=== PATIENT | male | born 1940 ===

== ENCOUNTER 2022-05-09 11:41 | Inpatient (IN) | payer MEDICARE ==
[~2022-05-09] VITALS: Ht 180.3 cm; Wt 68.9 kg
--- NOTE | 2022-05-09 19:34 | NUR ---
RECEIVED PT FROM TRANSPORT AND PLACED PT IN ROOM AT SHIFT CHANGE TIME, REPORT GIVEN TO LUAN MORALEZ. PT RESTING A/O. ON 5L O2. BED IN LOW POSITION, CALL LITE IN REACH, CALLS APPROP
--- NOTE | 2022-05-09 20:07 | NUR ---
DIRECT ADMIT FROM [place] 81 YR OLD MALE ADMITTED TO FLOOR FROM [facility], OR, WITH REPORTED COPD EXACERBATION WITH POSSIBLE NSTEMI. DIFFICULT TO ARROUSE, DENIES ALLERGIES. ON 5L/MIN O2 PER FACE MASK. 100%, O2 DROPPED TO 4L/MIN. HOB ELEVATED. DENIES CHEST PAIN. CALL PLACED TO DR BECKFORD WHO CALLED BACK TO CONFIRM SHE WILL COME UP TO ASSESS/ADMIT PT FARTUN. CALL LIGHT IN REACH
[2022-05-09] MEDS ORDERED: DULOXETINE HCL60 M1 PO (21:21)
[2022-05-09] MEDS ORDERED: NEURONTIN300 MG PO (21:21)
[2022-05-09] MEDS ORDERED: OXYCODONE-ACET1 EAC3 PO (21:22)
[2022-05-09] MEDS ORDERED: VITAMIN C125 MG PO (21:22)
[2022-05-09] MEDS ORDERED: FUROSEMIDE40 MG PO (21:24)
[2022-05-09] MEDS ORDERED: NICODERM CQ TOP (21:24)
[2022-05-09] MEDS ORDERED: VITAMIN B1 50 MG PO (21:24)
[2022-05-09] MEDS ORDERED: FOLI1 PO (21:25)
[2022-05-09] MEDS ORDERED: WIXELA 250-501 EAC1 INH (21:25)
[2022-05-09] MEDS ORDERED: TAMSULOSIN HCL0.4 M1 PO (21:26)
[2022-05-09] MEDS ORDERED: SPIRIVA RESPIMAT4 G3 INH (21:26)
[2022-05-09] MEDS ORDERED: PANTOPRAZOLE SO40 M2 PO (21:27)
[2022-05-09] MEDS ORDERED: ROPINIROLE HC PO (21:27)
[2022-05-09] MEDS ORDERED: METOPROLOL TART25 MG PO (21:28)
[2022-05-09] MEDS ORDERED: ZESTRIL40 M1 PO (21:28)
[2022-05-09] MEDS ORDERED: KLOR-CON 1010 ME8 PO (21:28)
[2022-05-09] MEDS ORDERED: ALLOPURINOL100 M1 PO (21:29)
[2022-05-09] MEDS ORDERED: LEVOTHYROXINE112 M16 PO (21:29)
[2022-05-09] MEDS ORDERED: TROSPIUM CHLORI20 M1 PO (21:30)
[2022-05-09] MEDS ORDERED: Ventolin/Prove6.7 GM INH (21:30)
[2022-05-09] MEDS ORDERED: ATOR40TA PO (21:31)
[2022-05-10 04:50] LABS: BASOPHILS ABSOLUTE AUTO 0.04 K/mm3 (0.00-0.23); BASOPHILS PERCENT AUTO 1 % (0-2); EOSINOPHILS PERCENT AUTO 0 % (0-6); Hematocrit 37.1 % (37.0-53.0); IMMATURE GRAN ABSOLUTE AUTO 0.12 K/mm3 (0.00-0.10); IMMATURE GRAN PERCENT AUTO 2 % (0-1); LYMPHOCYTES ABSOLUTE AUTO 0.32 K/mm3 (0.84-5.20); LYMPHOCYTES PERCENT AUTO 5 % (21-46); MONOCYTES ABSOLUTE AUTO 0.11 K/mm3 (0.16-1.47); MONOCYTES PERCENT AUTO 2 % (4-13); Mean Corpuscular HGB 30.4 pg (26.0-34.0); Mean Corpuscular HGB Conc 32.3 g/dL (31.5-36.5); Mean Corpuscular Volume 94 fL (80-100); Mean Platelet Volume 10.2 fL (9.1-12.4); NEUTROPHILS ABSOLUTE AUTO 6.22 K/mm3 (1.96-9.15); NEUTROPHILS PERCENT AUTO 91 % (41-73); Platelet Count 268 K/mm3 (150-400); Red Blood Cell Count 3.95 M/mm3 (4.30-5.90); White Blood Cell Count 6.81 K/mm3 (4.00-11.30)
[2022-05-10 05:25] LABS: Bun/Creatinine Ratio 19.1 (12.0-20.0); Calcium, Blood 8.7 mg/dL (8.5-10.1); Creatinine, Blood 0.99 mg/dL (0.60-1.20); Potassium, Blood 3.9 mmol/L (3.5-5.5)
--- NOTE | 2022-05-10 05:57 | NUR ---
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 DX WAS COPD EXACERBATION AND POSSIBLE NSTEMI. ASSESSED BY MD, ORDERS OBTAINED. O2 PER NC WAS STARTED AT 5L/MIN, BUT WAS TRENDED DOWN TO 3L/MIN SATS WERE 100% DENIED CHEST PAIN. HAS BEEN RESTING WITH LOWD BREATHING NOISES AT INTERVALS. AWAKE AT THIS TIME. LAB TROP LEVEL CALLED TO FLOOR: 1042. MD TO BE NOTFIED. ASYMPTOMATIC. CALL LIGHT IN REACH.
--- NOTE | 2022-05-10 06:13 | NUR ---
DR WRAY NOTIFIED OF TROP LEVEL 1042. ORDERS FOR HEPARIN DRIP PLACED. CHARGE NURSE NOTIFIED. CALL LIGHT IN REACH
[2022-05-10 06:57] LABS: Anti-Xa UFH, PHA Monitoring <0.10 IU/mL; International Normalized Ratio 1.08; Prothrombin Time Results 11.3 Sec (9.7-11.5)
--- NOTE | 2022-05-10 10:13 | NUR ---
PT COUGHS FREQUENTLY WHILE EATING, THIS CAUSES HIM TO BECOME SHORT OF BREATH AND ANXIOIUS. HE WILL ASK FOR HIS INHALER REPEADELY DURING THIS. HIS SATS REMAIN 95% OR HIGHER T/O. ONCE PATIENT IS ABLE TO COUGH UP WHAT IS CATCHING IN HIS THROAT HIS BREATHING IMPROVES AND ANXIETY SUBSIDES. SPOKE WITH PATIENT ABOUT TRIALING MECHANICAL SOFT DIET AT THIS TIME TO HELP IMPROVE ABILITY TO SWALLOW WITHOUT COUGHING MUCH. PT IS RECEPTIVE AND AGREES. PT CALLED THIS RN INTO ROOM AT AROUND 1000, HE HAD PULLED HIS IV OUT ACCIDENTLY AND WAS CONCERNED ABOUT THE BLEEDING. HELD PRESSURE AND STOPPED THE HEPARIN INFUSION. NOTIFIED PHARMACY AND WILL ATTEMPT TO PLACE A NEW IV.
--- NOTE | 2022-05-10 16:41 | NUR ---
SHIFT SUMMARY PT HAS NOT BEEN COUGHING FREQUENTLY SINCE NPO PENDING SPEECH EVAL PER DR. LYNN. PT WILL OCCASIONALLY COUGH AND GET SHORT OF BREATH BUT CAN BE REDIRECTED. OCCASIONALLY CONFUSED UPON WAKING UP, BED ALARM PLACED ON FOR SAFETY. PT USING URINAL AT BEDSIDE, STANDS AND PIVOTS WELL. HEPARIN INFUSING PER EMAR. ECHO DONE TODAY.
--- NOTE | 2022-05-10 17:50 | NUR ---
PT NPO AT THIS TIME PENDING SPEECH EVAL R/T COUGHING WHILE EATING.
--- NOTE | 2022-05-10 19:43 | NUR ---
AWAKE. IN BED. HEPARIN DRIP INFUSING. CALL LIGHT IN REACH
--- NOTE | 2022-05-10 23:13 | NUR ---
MED TELE REPORTS INTERMITTENT CT PAUSESS ABOUT 2 SEC EACH. PT ASYMPTOMATIC. RESTING QUIETLY. WILL CALL MD FOR NOTIFICATION.
--- NOTE | 2022-05-10 23:31 | NUR ---
CALL PLACED TO , NOTIFIED OF CT PAUSES. EKG ORDERED. REMAINS ASYMPTOMATIC
--- NOTE | 2022-05-10 23:50 | NUR ---
EKG DONE, A FIB. NOTE HX AFIB WELL. NOIFIED, VSS. REMAINS ASYMPTOMATIC. NO NEW ORDERS, STATED PT IS PROCESS OF WORK UP RE NSTEMI. CALL LIGHT IN REACH. RESETING QUIETLY
--- NOTE | 2022-05-11 04:22 | NUR ---
CAR DRYER SUMMARY IV HEPARIN DOSE CHANGED TO 14 U/KG PER PHARMACY TITRATION. HAS BEEN AWAKE AT INTERVALS. DENIED PAIN WHEN ASKED. RESPS COARSE/DIMINISHED TO AUSCULTATION. MED TELE REPORTED INTERMITTENT CT PAUSES - SOME OVER 2 SECONDS. MD NOTIFIED, EKG ORDERED - A FIB CONFIRMED. MD NOTIFIED BUT SINCE PT ASYMPTOMATIC, MD DID NOT ADD ANY MORE ORDERS, STATED THAT HIS RECENT NSTEMI WAS STILL BEING ASSESSED AND WOULD CONTIUE TO MONITOR. PT CONTINUES TO DENY CHEST PAIN AND PAIN IN GENERAL. CALL LIGHT IN REACH.
[2022-05-11 05:42] LABS: PCO2 Arterial 63.6 mmHg (35-45); PO2 Arterial 113 mmHg (80-100); pH Blood Arterial 7.39 (7.35-7.45)
[2022-05-11 07:29] LABS: Hematocrit 36.9 % (37.0-53.0); Hemoglobin 11.6 g/dL (13.5-17.5); Mean Corpuscular HGB 29.7 pg (26.0-34.0); Mean Corpuscular HGB Conc 31.4 g/dL (31.5-36.5); Mean Corpuscular Volume 94 fL (80-100); Mean Platelet Volume 9.8 fL (9.1-12.4); Platelet Count 225 K/mm3 (150-400); RDW Coefficient Variation 17.3 % (11.7-14.2); Red Blood Cell Count 3.91 M/mm3 (4.30-5.90); White Blood Cell Count 13.85 K/mm3 (4.00-11.30)
[2022-05-11 07:50] LABS: Albumin, Blood 3.3 g/dL (3.4-5.0); Albumin/Globulin Ratio 0.9 (0.8-1.8); Bilirubin, Total 0.6 mg/dL (0.1-1.0); Bun/Creatinine Ratio 29.2 (12.0-20.0); Calcium, Blood 8.6 mg/dL (8.5-10.1); Creatinine, Blood 1.06 mg/dL (0.60-1.20); Globulin, Blood 3.5 g/dL (2.2-4.0); Magnesium, Blood 2.4 mg/dL (1.6-2.4); Phosphorus, Blood 3.7 mg/dL (2.5-4.9); Potassium, Blood 4.2 mmol/L (3.5-5.5); Total Protein, Blood 6.8 g/dL (6.4-8.2)
[2022-05-11 08:46] LABS: CHOL/HDL RATIO 2.9; Cholesterol 149 mg/dL (50-200); HDL Cholesterol 52 mg/dL (>39); LDL/HDL RATIO 1.5; Low Density Lipoprotein Chol 79 mg/dL (0-110); Triglycerides 89 mg/dL (30-160); Very Low Density Lipoprot Chol 17 mg/dL (6-32)
--- NOTE | 2022-05-11 15:35 | NUR ---
CARDIAC MED RECORDS SEVERAL CALLS TO PCP, CLINICS, & HOSPITALS IN [facility], [place] & [place]. 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
--- NOTE | 2022-05-11 16:54 | NUR ---
SHIFT SUMMARY HEPARIN DRIP HAS RAN T/O SHIFT. CARDIOLOGY CONSULT COMPLETED THIS AM. MUCH WORK DONE INTO ATTEMPTING TO GET RECORDS FROM [facility]; UNSUCCESSFUL. TROP LEVELS TRENDING DOWN. MINIMALLY PRODUCTIVE COUGH (PT SWALLOWS).
[2022-05-12 03:45] LABS: Hematocrit 34.5 % (37.0-53.0); Hemoglobin 10.9 g/dL (13.5-17.5); Mean Platelet Volume 10.5 fL (9.1-12.4); Platelet Count 223 K/mm3 (150-400)
--- NOTE | 2022-05-12 04:27 | NUR ---
SHIFT SUMMARY PATIENT IS ALERT AND ORIENTED BUT FORGETFUL THIS SHIFT. PATIENT HAS HAD NO ACUTE EVENTS THIS SHIFT. VITAL SIGNS REVIEWED. PATIENT HAS BEEN ON HEPARIN DRIP ALL SHIFT AND REQUIRED NO TITRATIONS THIS SHIFT. TROPONINS HAVE BEEN TRENDING LOWER. PATIENT HAS HAD NO COMPLAINTS OF PAIN, NAUSEA, SOB OR VOMITTING THIS SHIFT. BED IN LOCKED AND LOWEST POSITION. CALL LIGHT IN PLACE. WILL MONITOR UNTIL SHIFT CHANGE.
--- NOTE | 2022-05-12 07:53 | NUR ---
SIGNIFICANT OTHER/DEVELOPMENT LEAD DAMASO CAUSEY [phone]
[2022-05-12 09:20] LABS: Albumin, Blood 3.7 g/dL (3.4-5.0); Anion Gap 5 mmol/L (6-16); Blood Urea Nitrogen 43 mg/dL (8-24); Bun/Creatinine Ratio 33.6 (12.0-20.0); CO2, Blood 36 mmol/L (21-32); Calcium, Blood 8.5 mg/dL (8.5-10.1); Chloride, Blood 94 mmol/L (98-108); Creatinine, Blood 1.28 mg/dL (0.60-1.20); Glomerular Filtration Rate 57 (60-); Glucose, Blood 152 mg/dL (70-99); Phosphorus, Blood 2.9 mg/dL (2.5-4.9); Potassium, Blood 3.7 mmol/L (3.5-5.5); Sodium, Blood 135 mmol/L (136-145)
--- NOTE | 2022-05-12 11:10 | NUR ---
PT IS IN THE [facility] SYSTEM, A [facility] GLOBE TESTER (ALEJO) CALLED TO CHECK ON THE PT [phone]
--- NOTE | 2022-05-12 11:13 | NUR ---
ATTEMPTED TO CALL [facility] FOR MEDICAL RECORDS PER DR MARTINES REQUEST CALL TO [facility] [phone] AND ASKED TO BE TRANSFERRED, UNABLE TO GET THROUGH MULTIPLE TIMES, UPDATED DR MARTINES
--- NOTE | 2022-05-12 14:46 | NUR ---
PT TRANSFERED TO ROOM 348. FLY MORALEZ. GIVEN REPORT WHO ASSUMES CARE.
--- NOTE | 2022-05-12 15:46 | NUR ---
PT TX FROM ROOM 363 TO ROOM 348 ([id number]) WITH CLOSER OBSERVATION AND REMOTE CAMERA FOR FALL RISK AND TO PROTECT PT FROM PULLING IV OUT. OERIENTED TO ROOM. PT IS CONFUSED, BUT DIRECTABLE AND CALM AT THE MOMENT. NOT TRYING TO LEAVE THE HOSPITAL LIKE WAS REPORTED BEFORE. HEPARIN GTT RUNNING. RESP E/U. OXYGEN AT 3L/NC. LUNGS CLEAR WITH FINE CRACKLES IN THE BASES. DENIES CHEST PAIN. REINFORCED THE CALL LIGHT AND SET BED ALARM.
--- NOTE | 2022-05-12 17:27 | NUR ---
SUMMARY- PT A/O TO SELF, FORGETFUL TO NAME OF TOWN. KNOWS THE PRESIDENT. MILD TREMOR FELT UPON PALP OF HANDS. PT DENIES VISUAL OR AUD HALLUCINATION. PT DENIES CHEST PAIN. BP CH[place]O ELEVATED. REMAINS ON HEPARIN GTT. HAS STAYED IN BED AND BEEN CALM AND COOPERATIVE, NO ATTEMPTS TO GET OOB. TOLERATING FOOD AND FLUID. USED THE URINAL. WILL REPORT TO OSWALD MORALEZ.
--- NOTE | 2022-05-13 04:45 | NUR ---
SHIFT SUMMARY PT CONTINUES WITH CWA'S, RESULTS HAVE BEEN LOW NUMBERS FOR THIS RN. PT HAS NO COMPLAINTS AT THIS TIME. PT BREATHING WITH A CROUP-LIKE SOUND. PT REFUSED OFFERS FOR BREATHING TX'S MUCH OF THE NIGHT, BUT FINALLY AGREED TO HAVE ONE. PT SLEEPING OFF AND ON THROUGHOUT THE NIGHT. PT PLEASANT AND ABLE TO FOLLOW DIRECTION. PT IS SLOW TO RESPOND AND A BIT CONFUSED. CALL LIGHT IS WITHIN HIS REACH, ALTHOUGH HE DOES NOT USE IT. BED ALARM IS ON.
[2022-05-13 05:27] LABS: Hematocrit 32.3 % (37.0-53.0); Hemoglobin 10.3 g/dL (13.5-17.5); Mean Corpuscular HGB 29.9 pg (26.0-34.0); Mean Corpuscular HGB Conc 31.9 g/dL (31.5-36.5); Mean Corpuscular Volume 94 fL (80-100); Platelet Count 184 K/mm3 (150-400); RDW Standard Deviation 57.3 fL (35.1-46.3); Red Blood Cell Count 3.44 M/mm3 (4.30-5.90); White Blood Cell Count 9.42 K/mm3 (4.00-11.30)
[2022-05-13 05:56] LABS: Anion Gap 4 mmol/L (6-16); Blood Urea Nitrogen 42 mg/dL (8-24); Bun/Creatinine Ratio 35.6 (12.0-20.0); CO2, Blood 36 mmol/L (21-32); Calcium, Blood 7.7 mg/dL (8.5-10.1); Chloride, Blood 100 mmol/L (98-108); Creatinine, Blood 1.18 mg/dL (0.60-1.20); Glomerular Filtration Rate 63 (60-); Glucose, Blood 103 mg/dL (70-99); Phosphorus, Blood 3.1 mg/dL (2.5-4.9); Potassium, Blood 3.8 mmol/L (3.5-5.5); Sodium, Blood 140 mmol/L (136-145)
--- NOTE | 2022-05-13 18:03 | NUR ---
SHIFT SUMMARY- PT IS ALERT, SOME CONFUSION. HE WILL BE NPO AFTER MIDNIGHT FOR ANGIO TOMORROW. HE SLEPT MOST OF THIS SHIFT. HE WAS UP FOR MEALS. HR WAS LOW EARLY THIS MORNING BUT HAS BEEN STABLE THE REST OF THIS SHIFT. HIS BED IS IN THE LOW POSITION AND CALL LIGHT IS WITHIN REACH.
--- NOTE | 2022-05-14 03:36 | NUR ---
SHRIMP PEELER SUMMARY WAS SLEEPING AT SHIFT COMMENCE. O2 PER NC. AWAKENED FOR HS MEDS, HOB ELEVATED FOR COMFORT. CIWAS VERY LOW - SEE DOC FLOW SHEETS. SOME CONGESTED RESPS TO AUSCULTATION. MED TELE A FIB. UP WITH ASSIST TO VOID IN URINAL. NPO FOR PROCEDURE LATER TODAY (ANGIOGRAM). COVID TEST SENT TO LAB FOR PROCESSING. CALL LIGHT IN REACH.
[2022-05-14 06:11] LABS: Albumin, Blood 3.6 g/dL (3.4-5.0); Anion Gap 2 mmol/L (6-16); Blood Urea Nitrogen 40 mg/dL (8-24); Bun/Creatinine Ratio 30.8 (12.0-20.0); CO2, Blood 40 mmol/L (21-32); Calcium, Blood 8.2 mg/dL (8.5-10.1); Chloride, Blood 100 mmol/L (98-108); Glomerular Filtration Rate 56 (60-); Glucose, Blood 98 mg/dL (70-99); Phosphorus, Blood 3.1 mg/dL (2.5-4.9); Sodium, Blood 142 mmol/L (136-145)
[2022-05-14 11:01] LABS: PCO2 Arterial 89 mmHg (35-45); PO2 Arterial 78.1 mmHg (80-100); pH Blood Arterial 7.26 (7.35-7.45)
--- NOTE | 2022-05-14 12:50 | NUR ---
THIS MORNING JUST AFTER SHIFT CHANGE PT REPORTED THAT HE WAS FEELING SHORT OF BREATH. CALLED RT. LUNG SOUNDS WERE COURSE AND TIGHT. PT DESATED INTO THE LOW 80'S HIGH 70'S. BREATHING TREATMENT WAS ADMINISTERED. SATURATIONS INCREASED TO MID-HIGH 90'S. PT REPORTED FEELING BETTER. HE ATE BREAKFAST, TOOK HIS MORNING MEDICATIONS, WITH NO COMPLAINTS. REPORTED THAT HE HAS HAD DIFFICULTY BREATHING LIKE THAT IN THE PAST. HE APPEARS IN NO DISTRESS AT THAT TIME AND REPORTS NO MORE DISCOMFORT. HE TOOK A NAP. UPON WAKING DR. LYNN ROUNDED ON THE PT. HE HAD SOME INCREASING DIFFICULTY BREATHING DURING HER VISIT. FLUTTER AND INCENTIVE SPIROMETER WAS GIVEN TO THE PT. RT CAME IN JUST AFTER DR. LYNN LEFT, PT REPORTED THAT HE WAS HAVING DIFFICULTY BREATHING AGAIN AND BREATHING TREATMENT WAS STARTED. PT SATS WERE IN THE 90'S. PT BEGAIN TO HAVE INCREASED RESP AND O2 SATS TRENDED DOWN. RT PLACED PT ON BIPAP. O2 SATS DROPED TO 68. O2 SATS INCREASED WITH BIPAP. XRAYS OF THE CHEST WERE TAKEN. PT WAS TRANSFERED TO PCU.
--- NOTE | 2022-05-14 12:57 | NUR ---
ASSUMED CARE OF PT AT 1240. RECIEVED REPORT FROM KIRT CUTLER. PT ARRIVED IN HOSPITAL BED VIA NC. RT AT BEDSIDE FOR BIPAP PLACEMENT AND SETTINGS. VS; BP 121/60 (75), HR 73, RR 22, O2 97% ON BIPAP. PT EYES ARE CLOSED BUT OPENS EYES TO VERABL STIMULI. PT IN BED SITTING UP. CALL LIGHT IN REACH AND BED IN LOWEST POSITION.
[2022-05-14 14:51] LABS: Influenza A, PCR NEGATIVE (NEGATIVE); Influenza B, PCR NEGATIVE (NEGATIVE); Resp Syncytial Virus, PCR NEGATIVE (NEGATIVE); SARS-Cov-2 (COVID-19) PCR, MMC NEGATIVE (NEGATIVE)
[2022-05-14 15:07] LABS: PCO2 Arterial 66.2 mmHg (35-45); PO2 Arterial 68.5 mmHg (80-100); pH Blood Arterial 7.38 (7.35-7.45)
--- NOTE | 2022-05-14 18:14 | NUR ---
SHIFT SUMMARY PT EYES CLOSED, NOT RESPONDING TO VERBAL STIMULI. BIPAP IN PLACE, SETTINGS 18/10 AND FI02 25%. VS; SBP 120'S - 130'S, HR 70'S, 02 91 - 98% ON BIPAP. PT HAD A FEW EPISODES OF BRADYCARDIA W/HR IN 50'S. ABOUT 1700, PT USED CALL LIGHT TO ASK FOR COFFEE AND TO EAT. PT ALERT, CONFUSED ON THE TIME OF DAY. PT THOUGHT IT WAS 0630 AM. WAS ABLE TO BE REORIENTED. BIPAP REMOVED AND NC PLACED TO ALLOW PT TO EAT DINNER. O2 SATS MAINTAINED. PT INTERACTIVE AND ANSWERING QUESTIONS. PT TO BE NPO AT MIDNIGHT FOR ANTICIPATED ANGIO IN AM. CALL LIGHT IN REACH AND BED IN LOWEST POSITION.
--- NOTE | 2022-05-14 19:13 | NUR ---
Pt short of breath/dyspneic with effort of attempting to stand and void, even while on the bipap. Back in bed and condom cath placed.
[2022-05-15 04:28] LABS: PCO2 Arterial 80.7 mmHg (35-45); PO2 Arterial 133 mmHg (80-100); pH Blood Arterial 7.29 (7.35-7.45)
[2022-05-15 04:33] LABS: Hematocrit 35.3 % (37.0-53.0); Hemoglobin 10.9 g/dL (13.5-17.5); Mean Corpuscular HGB 30.1 pg (26.0-34.0); Mean Corpuscular HGB Conc 30.9 g/dL (31.5-36.5); Mean Corpuscular Volume 98 fL (80-100); Mean Platelet Volume 10.7 fL (9.1-12.4); Platelet Count 195 K/mm3 (150-400); RDW Standard Deviation 61.7 fL (35.1-46.3); Red Blood Cell Count 3.62 M/mm3 (4.30-5.90); White Blood Cell Count 10.26 K/mm3 (4.00-11.30)
[2022-05-15 04:58] LABS: Albumin, Blood 3.3 g/dL (3.4-5.0); Anion Gap 3 mmol/L (6-16); Blood Urea Nitrogen 44 mg/dL (8-24); Bun/Creatinine Ratio 30.6 (12.0-20.0); CO2, Blood 39 mmol/L (21-32); Calcium, Blood 8.6 mg/dL (8.5-10.1); Chloride, Blood 101 mmol/L (98-108); Creatinine, Blood 1.44 mg/dL (0.60-1.20); Glomerular Filtration Rate 49 (60-); Glucose, Blood 127 mg/dL (70-99); Phosphorus, Blood 3.7 mg/dL (2.5-4.9); Potassium, Blood 4.5 mmol/L (3.5-5.5); Sodium, Blood 143 mmol/L (136-145)
--- NOTE | 2022-05-15 05:54 | NUR ---
SHIFT SUMMARY PT ALERT AND ORIENTED X4. FORGETFUL AT TIMES. AFEBRILE. BP STABLE. HR AFIB 60-70'S. ON BIPAP 18/10 30% FIO2, SATS OVER 95%. REQUESTED MULTIPLE BIPAP BREAKS THIS EVENING, SWITCHING TO 3L NC SATS OVER 92% DURING THESE BREAKS. CONDOM CATH IN PLACE DRAINING TO GRAVITY. 0428 ABG WORSENED FROM 1500 ABG YESTERDAY. PH DOWN FROM 7.38 TO 7.29 AND CO2 UP FROM 66.2 TO 80.7. PT PLACED ON BIPAP SINCE DRAW AND ENCOURAGED TO KEEP IT ON. PT NPO SINCE MIDNIGHT FOR POTENTIAL ANGIO. IN BED SLEEPING WITH CALL ALARM AT SIDE, WILL CONTINUE TO MONITOR UNTIL REPORT GIVEN TO ONCOMING RN
--- NOTE | 2022-05-15 07:30 | NUR ---
Pt is awake, conversant, but unable to complete sentences without pausing for breath. RR 24/minute, no distress. On 2.5 l/min n.c. delivery. Lungs sound tight, crackles, wheezes, and little air movement. RT here, pt receiving breathing tx at this time/. Flutter valve given. Pt is coughing occasionally, very scant clear sputum expectorated; he states that he is not coughing up anything, but he suctions scant amounts from his mouth after coughing. Dr. Fields here to talk with the pt.
--- NOTE | 2022-05-15 13:01 | NUR ---
Received call from adobe layer helper Nicole reporting Pt may benefit from discussion regarding code status. Spoke with Primary RNs Maryanne and Christine. Discussed case and concerns. Pt resting in bed and is A&OX4. Pt appears moderately dyspneic as evidenced by work of breathing and ability to speak in 1 to 2 word senctences only. Pt reports living at home alone. Pt reports having 1 cat and 1 dog. Pt states having a daughter and a son, both living in [place]. Pt reports having a cargiver that comes and assist with his needs. Engaged in therapeutic discussion regarding code status. Educated on life sustaining treatments including risk factors and implications of CPR. Pt V/U and states his wishes are DNR. Pt also request assistance with completing POLST. Assisted Pt with completing POLST. Spoke with Dr Fountain and discussed case. Placed DNR order in [facility] per V/O from Dr Fountain. Palliative Care will remain available.
--- NOTE | 2022-05-15 18:13 | NUR ---
SHIFT SUMMARY PT A&O, ON 2.5 L O2 WITH O2 SATS 96 - 98%. PT DOES NOT WANT TO WEAR BIPAP; EDUCATION PROVIDED. BIPAP OFFERED PERIODICALLY, PT AGREED TO WEAR DURING LATE MORNING NAP. PT BECAME MILDLY FATIGUE DURING LATE MORNING/AFTERNOON, O2 INCREASED TO 3 L UNTIL FEELING BETTER THEN BACK DOWN TO 2.5 L NC. LUNG SOUNDS ARE TIGHT AND WHEEZING, PT SOUNDS CONGESTED AND MOIST. COUGHING UP MODERATE AMOUNTS OF CLEAR, THICK SPUTUM. PT IS ABLE TO SUCTION INDEPENDENTLY AND IS USING FLUTTER VALVE. PT DENIES SOB PT STATES HE IS TIRED AND FEELS CONGESTED. THIS AM TACHYPNEA AND SUBSTERNAL RETRACTIONS NOTED, BUT IMPROVED THROUGHOUT THE DAY. VS; SBP 150'S , HR 70 - 80'S. PT EATING AND INTERACTING WITH STAFF, RESPONDING APPROPRIATELY. PT DID NOT HAVE ANGIO COMPLETED TODAY DUE TO WORSENING KIDNEY FUNCTION. PT EXPRESSED FRUSTRATION BUT EDUCATION PROVIDED BY [employer] DEHYDRATOR OPERATOR AND PLAN TO BE DETERMINED. PT CURRENTLY BACK ON BIPAP DUE TO INCREASED SOB AND PT REPORTING "FEELING LIKE IT WAS HARDER TO BREATH", PT WAS SITTING UP ON SIDE OF BED. CALL LIGHT IN REACH AND BED IN LOW POSIION.
--- NOTE | 2022-05-16 02:04 | NUR ---
EVENT NOTE RN ENTERS ROOM AT 0050. PT SATS WELL ON 3L NC OVER 93% BUT LABORED RESPIRATIONS AND RR >30. COMPLAINS OF NOT BEING ABLE TO BREATHE. RT NOTIFIED. PT PUT ON BIPAP BUT NOT TOLERATING. DR ANTONY CALLED AND SEROQUEL ORDERED. PT ENCOURAGED TO KEEP MASK ON LONG POSSIBLE
[2022-05-16 03:56] LABS: BASOPHILS ABSOLUTE AUTO 0.07 K/mm3 (0.00-0.23); BASOPHILS PERCENT AUTO 0 % (0-2); EOSINOPHILS PERCENT AUTO 0 % (0-6); Hematocrit 34.6 % (37.0-53.0); Hemoglobin 10.7 g/dL (13.5-17.5); IMMATURE GRAN PERCENT AUTO 2 % (0-1); LYMPHOCYTES ABSOLUTE AUTO 0.14 K/mm3 (0.84-5.20); LYMPHOCYTES PERCENT AUTO 1 % (21-46); MONOCYTES ABSOLUTE AUTO 1.64 K/mm3 (0.16-1.47); MONOCYTES PERCENT AUTO 9 % (4-13); Mean Corpuscular HGB 30.3 pg (26.0-34.0); Mean Corpuscular HGB Conc 30.9 g/dL (31.5-36.5); Mean Corpuscular Volume 98 fL (80-100); Mean Platelet Volume 10.7 fL (9.1-12.4); NEUTROPHILS ABSOLUTE AUTO 15.68 K/mm3 (1.96-9.15); NEUTROPHILS PERCENT AUTO 88 % (41-73); Platelet Count 217 K/mm3 (150-400); RDW Coefficient Variation 17.2 % (11.7-14.2); Red Blood Cell Count 3.53 M/mm3 (4.30-5.90); White Blood Cell Count 17.93 K/mm3 (4.00-11.30)
[2022-05-16 04:15] LABS: Bun/Creatinine Ratio 36.1 (12.0-20.0); Calcium, Blood 8.5 mg/dL (8.5-10.1); Creatinine, Blood 1.22 mg/dL (0.60-1.20)
--- NOTE | 2022-05-16 06:53 | NUR ---
SHIFT SUMMARY PT INITIALLY ALERT AND ORIENTED TO START SHIFT. ON 3L NC, PLEASANT, W/ RR IN LOW 20'S BP STABLE. HR REMAINS AFIB 50-80'S. WORK OF BREATHING AND RR INCREASED ON NC THROUGHOUT NIGHT. PT INITIALLY REFUSING BIPAP. SEE EVENT NOTE. PT MENTATION CHANGED, BECOMING INCREASINGLY AGGRESIVE, ANXIOUS AND DYSPNIEC. PT TOLERATED PUTTING BIPAP ON SINCE SEROQUEL ADMINISTRATION. PT RIPPED OF BIPAP ONCE SINCE MEDICATION GIVEN. RR IN 40'S WITH BIPAP ON AND DESATS INTO 60'S. CURRENTLY ON BIPAP SLEEPING COMFORTABLY WITH RR AT 20. WILL CONTINUE TO MONITOR UNTIL REPORT GIVEN TO ONCOMING NR
[2022-05-16 12:18] LABS: SARS-Cov-2 (COVID-19) PCR, MMC NEGATIVE (NEGATIVE)
--- NOTE | 2022-05-16 17:37 | NUR ---
SHIFT SUMMARY PT HAS BEEN TOO WEAK TO GET OUT OF BED. PT HAS HAD SEVERAL EPISODES OF CONFUSION WHERE THIS RN HAS ATTEMPTED TO REORIENT. AT ONE ENCOUNTER THE PT WOULD REPEAT "WHAT MODE IS IT" WITHOUT PROVIDING ANY CONTEXT OR ANSWERING ANY FOLLOW-UP QUESTIONS. PT HAS SLEPT IN INTERVALS OF 30 MINUTES TO ONE HOUR. AT APPROXIMATELY 1200 THE PT KEPT SHOUTING "HELP ME" WHILE TRYING TO REMOVE THEIR BIPAP MASK. THIS RN WAS UNABLE TO CALM PT AND THEY WERE TRANSITIONED TO NASAL CANNULA AT 3L. PT HAS HAD VERY LITTLE VERBAL INTERACTION AND DOES NOT ALWAYS RESPOND TO VERBAL STIMULI. PT WAS PLACED ON A BED [place] FOR A BOWEL MOVEMENT THIS EVENING AFTER ATTEMPTING TO GET OUT OF BED UNASSISTED AND BEING UNABLE TO GET SELF TO SITTING FROM LYING UNAIDED.
--- NOTE | 2022-05-16 18:44 | NUR ---
Pt polst on chart will need physician signature. pt fatigued desats easily revewed medications for burden of ventilation. AM labs pening to review his prognosis. kps score is 40%.
--- NOTE | 2022-05-16 20:31 | NUR ---
HS MEDICATIONS HELD HS MEDICATIONS HELD DUE TO ASPIRATION RISK. PER DAYSHIFT RN REPORT PT HAD BEEN SWALLOWING PILLS WHOLE WITH WATER WITHOUT DIFFICULTY DURING THE DAY. THIS EVENING PT TOOK ONE SMALL PILL AND SIP OF WATER AND BEGIN COUGHING QUITE A BIT AND APPEARED TO HAVE SOME PROBLEMS SWALLOWING. PT REPORTS THAT HE WAS ABLE TO GET THE PILL DOWN. I DID NOT FEEL COMFORTABLE GIVING PT ANYMORE OF HIS HS MEDICATIONS. RN [facility] NOTIFIED. DR. ANTONY CALLED AND NOTIFIED, REQUESTED SPEECH EVAL. DR. ANTONY TO REVIEW PT CHART AND ORDER IF NECESSARY.
--- NOTE | 2022-05-17 03:50 | NUR ---
SHIFT SUMMARY PT CONTINUES TO HAVE CONFUSION, HE WAS A/O TO SELF AND YEAR, AND PRESIDENT. BUT DID NOT KNOW WHERE HE WAS, AND IS CONFUSED TO SITAUATION AND EVENT. PT KEPT REMOVING BIPAP T/O THE NIGHT, BIPAP HAD TO BE PLACED SEVERAL TIMES BY MYSELF AND OTHER STAFF T/O THE NIGHT. PT MAINTAINS SATS ABOVE 95% ON 2L O2 WELL THE BIPAP AT 40% FIO2. LUNGS ARE MOIST, PT WITH PRODUCTIVE COUGH WITH THICK BROWN SPUTUM. VITALS ARE STABLE. CONDOM CATH IN PLACE PATENT AND DRAINING WITH ADEQUATE OUTPUT THIS SHIFT. PT BEGINS COUGHING HEAVILY WHEN TAKING IN SMALL SIP OF WATER, AND ONE SMALL PILL AT THE START OF THE SHIFT. DR. ANTONY NOTIFIED AND SPEECH EVAL ORDERED. PT HAS NOT TAKEN ANYTHING ELSE BY MOUTH THIS SHIFT PENDING SPEECH EVAL. ABG DONE THIS AM. PT RESTING AT THIS TIME. BED IN LOWEST POSITION, CALL LIGHT WITHIN REACH.
[2022-05-17 03:55] LABS: BASOPHILS ABSOLUTE AUTO 0.08 K/mm3 (0.00-0.23); BASOPHILS PERCENT AUTO 1 % (0-2); EOSINOPHILS ABSOLUTE AUTO 0.06 K/mm3 (0.00-0.68); EOSINOPHILS PERCENT AUTO 0 % (0-6); Hematocrit 34.1 % (37.0-53.0); Hemoglobin 10.8 g/dL (13.5-17.5); IMMATURE GRAN ABSOLUTE AUTO 0.35 K/mm3 (0.00-0.10); IMMATURE GRAN PERCENT AUTO 2 % (0-1); LYMPHOCYTES ABSOLUTE AUTO 0.57 K/mm3 (0.84-5.20); LYMPHOCYTES PERCENT AUTO 4 % (21-46); MONOCYTES ABSOLUTE AUTO 2.51 K/mm3 (0.16-1.47); MONOCYTES PERCENT AUTO 16 % (4-13); Mean Corpuscular HGB 30.2 pg (26.0-34.0); Mean Corpuscular HGB Conc 31.7 g/dL (31.5-36.5); Mean Corpuscular Volume 95 fL (80-100); Mean Platelet Volume 10.5 fL (9.1-12.4); NEUTROPHILS ABSOLUTE AUTO 11.85 K/mm3 (1.96-9.15); NEUTROPHILS PERCENT AUTO 77 % (41-73); Platelet Count 200 K/mm3 (150-400); RDW Coefficient Variation 17.3 % (11.7-14.2); RDW Standard Deviation 60.5 fL (35.1-46.3); Red Blood Cell Count 3.58 M/mm3 (4.30-5.90); White Blood Cell Count 15.42 K/mm3 (4.00-11.30)
[2022-05-17 04:34] LABS: Bun/Creatinine Ratio 42.1 (12.0-20.0); Calcium, Blood 8.4 mg/dL (8.5-10.1); Potassium, Blood 4.3 mmol/L (3.5-5.5)
[2022-05-17 04:55] LABS: PCO2 Arterial 68.6 mmHg (35-45)
[2022-05-17 04:56] LABS: PO2 Arterial 96.4 mmHg (80-100)
--- NOTE | 2022-05-17 08:22 | NUR ---
NOC SHIFT PLACED ORDER FOR SPEECH THERAPY CONSULT PT ASPIRATED ON EVENING PILLS SHE ATTEMPTED TO ADMINISTER, THE EVENING AIDE ALSO ATTEMPTED TO GIVE PT A SIP WAS WATER WHICH PT ALSO WAS REPORTED TO HAVE ASPIRATED ON WELL LAST NOC. PT NPO FOR SPEECH THERAPY ZHANNA
--- NOTE | 2022-05-17 11:52 | NUR ---
PT CONTINUES TO PULL AT MASK, PT CONSTANTLY REPOSITIONING AND ADJUSTING MASK STRAPS ON HIS OWN FOR COMFORT WHICH CAUSES AIRLEAKS. RT IS MADE AWARE THAT PT IS OFTEN ADJUSTING MASK ON HIS OWN WHICH HAS BEEN WITNESSED. PT'S MENTATION WAXES AND WANES, HE IS QUITE ANXIOUS AND BECOMES EASILY AGITATED. PT USES CALL LIGHT OCCASSIONALLY, OTHER TIMES SHOUTING OUT DOOR, REQUIRES FREQUENT ORAL SUCTIONING. ORAL CARE PERFORMED Q4 HOURS, PT TOLERATES ORAL CARE WELL. PT'S FAMILY WAS UPDATED BY DR CHANG TODAY
--- NOTE | 2022-05-17 15:26 | NUR ---
PT WAS BEING CONTINUOUSLY OBSERVED ON CAMERA, HE WAS NOTED TO REMOVE THE CORNER OF HIS MASK AND WITNESSED SPITTING ON SELF THEN PRESSING CALL LIGHT. THIS RN AND SOAP MIXER TO ROOM PT HAS NOT REPLACED MASK APPROPRIATELY, PT IS EDUCATED TO CALL STAFF PRIOR TO REMOVING AND MASK TO SPITTING ON SELF PT AKNOWLEDGES EDUCATTION BUT APPEARS ANGRY ABOUT THE EDCUATION PROVIDED. PT'S GOWN IS CHANGED. PT NOW REPORTS THAT HE IS HAVING "SEVERE PAIN" X3O MINUTES ALSO BECOMES ANGRY WHEN ASKED WHERE THE PAIN IS LOCATED PT DOES EVENTUALLY REPORT PAIN TO BE IN HIS LOWER BACK, THEN GOES ON TO STATE THAT HE IS GOING TO REQUIRE "IV PAIN MEDICINE OR I WANT TO , IF I DON'T GET IT I'M OUT OF HERE", PT REPOSITIONED WHICH HE STS RELIEVED THE SUDDEN ONSET OF BACK PAIN. PT THEN BEGINS SCREAMING "I CAN NOT BREATHE, I AM GOING TO " VSS, SPO2 95%, EMAR IS REVIEWED DECISION WAS MADE TO ADMINISTER ATIVAN IVP, DOSE WAS STARTED WITH 0.5MG PT HAS NOT RECEIEVED ATIVAN THIS ADMISSION, WILL CONSIDER ADMINISTERING THE FULL 1MG DOSE OF THE SLIDING 0.5-1MG DOSE FOR ANXIETY AND AIR HUNGER
--- NOTE | 2022-05-17 18:02 | NUR ---
LUNG SOUNDS NOTED TO BE MORE WET AND COARSE, DR GRACE CALLED, TELEPHONE ORDER OBTAINED TO CHANGE 125ML/HR NS INFUSION TO TKO AND REPEAT CHEST XRAY IN THE AM. PT REMAINS CONFUSED, AND AGITATED, ATIVAN 0.5MG HAS LITTLE AFFECT ON AGITATION OR ANXIETY. PT REFQUENTLY REMOVING THE STRAPS FROM BIPAP MACHINE. PT WAS UNABLE TO TOLERATE NASAL CANNULA FOR LONG THIS AM WHEN PLACED ON NASAL CANNULA TO SPEAK WITH DR GRACE. HTN NOTED T/OTHE SHIFT. PT REMAINS NPO, PENDING SPEECH THERAPY EVAL IN THE AM, PT WITH VERY MINIMAL GAG REFLEX NOTED UPON SUCTIONING, PT WITH FREQUENT SUCTIONING AND ORAL CARE T/O THIS SHIFT WHICH HE TOLERATES WELL BUT DOES GET AGITATED WITH. THE PAIN THAT PATIENT REPORTED TO HIS BACK A FEW HOURS AGO REMAINS RESOLVED AFTER REPOSITIONING AND HAS NOT RETURNED.
[2022-05-18 04:43] LABS: Base Excess Venous 14.6 mmol/L; PCO2 Venous 67.6 mmHg (38-42); pH Blood Venous 7.38 (7.34-7.37)
--- NOTE | 2022-05-18 05:34 | NUR ---
SHIFT SUMMARY PT RESPONDS TO PRESSURE STIMULI WITH MOANS. SpO2> 92% ON BIPAP 14/6 50%FiO2, PT REQUIRING 1mg IV ATIVAN PRN Q2hr PER EMAR IN ORDER TO KEEP BIPAP MASK ON. PT TOLERATED 3L NC FOR 30 MINUTES BEFORE TAKING IT OFF AND DESATURATING INTO 70's. PT REQUIRED NON-REBREATHER, NT SUCTION BY RT, AND BEING PLACED BACK ON BIPAP TO RECOVER TO 90's. BP ELEVATED, MANAGING PER EMAR, BP IMPROVED WITH SBP 140-150's POST NT SUCTION. AFIB WITH PVC's 70-110's. PT REMAINED BEDREST THIS SHIFT D/T OXYGEN DEMAND AND MENTAION. WILL REPORT TO DAY SHIFT RN.
[2022-05-18 06:50] LABS: Calcium, Blood 8.6 mg/dL (8.5-10.1); Creatinine, Blood 0.83 mg/dL (0.60-1.20); Potassium, Blood 4.2 mmol/L (3.5-5.5)
--- NOTE | 2022-05-18 17:13 | NUR ---
SHIFT SUMMARY PT REMAINS LETHARGIC AND ONLY REPONDS TO PAIN WITH MOANING. PT DOES START CALLING OUT WITH REPOSITIONING. PT HAS BEEN BIPAP DEPENDENT ALL SHIFT. PT TRIALED ON 6L NC AND DESATURATED TO LOW 80'S AFTER 15 MINUTES. WHILE OFF BIPAP, PT COUGHED UP LARGE AMOUNTS OF THICK DOTSON SPUTUM. ORAL CARE HAS BEEN PROVIDED FREQUENTLY THIS SHIFT. PROTECTIVE PAD PLACED ON BRIDGE OF NOSE TO PREVENT FURTHER BREAKDOWN. PT REPOSITIONED Q2H. PT HAD CONDOM CATH ON EARLY IN THE SHIFT, BUT ATTENDS ON AT THIS TIME AND PT HAS BEEN INCONTINENT OF BOWEL AND BLADDER. REDNESS NOTED TO HEELS THIS AM AND FEET HAVE BEEN FLOATED ALL SHIFT. CLINIMIX INFUSING PER ORDERS. WILL CONTINUE TO MONITOR CLOSELY
[2022-05-19 04:27] LABS: BASOPHILS ABSOLUTE AUTO 0.05 K/mm3 (0.00-0.23); BASOPHILS PERCENT AUTO 0 % (0-2); EOSINOPHILS ABSOLUTE AUTO 0.04 K/mm3 (0.00-0.68); EOSINOPHILS PERCENT AUTO 0 % (0-6); Hematocrit 32.2 % (37.0-53.0); Hemoglobin 9.9 g/dL (13.5-17.5); IMMATURE GRAN ABSOLUTE AUTO 0.26 K/mm3 (0.00-0.10); IMMATURE GRAN PERCENT AUTO 2 % (0-1); LYMPHOCYTES ABSOLUTE AUTO 0.36 K/mm3 (0.84-5.20); LYMPHOCYTES PERCENT AUTO 3 % (21-46); MONOCYTES ABSOLUTE AUTO 1.54 K/mm3 (0.16-1.47); MONOCYTES PERCENT AUTO 12 % (4-13); Mean Corpuscular HGB 29.6 pg (26.0-34.0); Mean Corpuscular HGB Conc 30.7 g/dL (31.5-36.5); Mean Corpuscular Volume 96 fL (80-100); Mean Platelet Volume 10.3 fL (9.1-12.4); NEUTROPHILS ABSOLUTE AUTO 10.68 K/mm3 (1.96-9.15); NEUTROPHILS PERCENT AUTO 83 % (41-73); Platelet Count 215 K/mm3 (150-400); RDW Standard Deviation 61.8 fL (35.1-46.3); Red Blood Cell Count 3.35 M/mm3 (4.30-5.90); White Blood Cell Count 12.93 K/mm3 (4.00-11.30)
[2022-05-19 04:37] LABS: Base Excess Venous 15.3 mmol/L; Bicarbonate Venous 36.6 mmol/L (24.0-30.0); PCO2 Venous 64.1 mmHg (38-42)
[2022-05-19 04:58] LABS: Albumin, Blood 2.7 g/dL (3.4-5.0); Albumin/Globulin Ratio 0.8 (0.8-1.8); Bilirubin, Total 0.9 mg/dL (0.1-1.0); Bun/Creatinine Ratio 49.1 (12.0-20.0); Calcium, Blood 8.7 mg/dL (8.5-10.1); Creatinine, Blood 0.84 mg/dL (0.60-1.20); Globulin, Blood 3.3 g/dL (2.2-4.0); Potassium, Blood 3.7 mmol/L (3.5-5.5)
--- NOTE | 2022-05-19 05:40 | NUR ---
SHIFT SUMMARY PT RESPONDS TO VERBAL STIMULI WITH MOANS, PT YELLS OUT DURING REPOSITIONING AND ORAL CARE. ORAL CARE PROVIDED FREQUENTLY THIS SHIFT. PT ONLY TOLERATED NOT WEARING BIPAP JUST FOR ORAL CARE. SpO2> 92% ON BIPAP 14/6 40%FiO2. BP ELEVATED, MANAGING PER EMAR. AFIB WITH PVC's 80's, PT WITH A FEW RUNS OF V-TACH THIS SHIFT, LONGEST ONE BEING 9 BEATS, PT ASYMPTOMATIC. CLINIMIX INFUSING PER ORDER. CONDOM CATH IN PLACE. NO ACUTE EVENTS. WILL REPORT TO DAY SHIFT RN.
--- NOTE | 2022-05-19 08:15 | NUR ---
ASSUMED CARE PT TAKEN OFF BIPAP THIS AM AND PLACED ON 10L OXYMIZER TO PERFORM ORAL CARE. PT OPENS HIS EYES AND ANSWERS QUESTIONS APPROPRIATELY. HR AFIB WITH PVC. BP STABLE. PT DENIES ANY PAIN. PT STATES HE HAS BEEN SICK A LONG TIME AND WOULD LIKE TO GO HOME. PT STATES HE "JUST WANTS TO BE COMFORTABLE". PALLIATIVE CARE NURSE CALLED TO COME MEET WITH PT. PT STATES HE FEELS SOB AND FEELS LIKE HE CAN'T BREATHE. DR. GRACE CALLED AND UPDATED. NEW ORDERS FOR ONE TIME DOSE OF DILAUDID FOR AIR HUNGER. PT REQUESTS THIS RN TO CALL DULCE HIS CAREGIVER AND FRIEND. THIS RN TALKS WITH DULCE AND UPDATES HER. PT PLACED BACK ON BIPAP DUE TO WORK OF BREATHING AND DESATURATING TO THE 80'S. PT RECOVERS WELL WITH BIPAP. WILL CONTINUE TO MONITOR CLOSELY
--- NOTE | 2022-05-19 12:00 | NUR ---
DR. GRACE AT BEDSIDE AND PT STATES HIS WISHES TO BE COMFORT CARE. DR. GRACE SPOKE WITH FAMILY AND ORDERS PLACED. WILL CONTINUE TO PROVIDE COMFORT MEASURES
--- NOTE | 2022-05-19 18:12 | NUR ---
ASSUMED CARE OF PT AT 1600. PT'S SIGNIFICANT OTHER ARRIVED AND WANTED AN UPDATE ON PT. PALLIATIVE CARE NOTIFIED AND WILL COME TALK TO SO ABOUT PT'S WISHES TO GO ON COMFORT CARE. PT'S BIPAP REMOVED PER HIS REQUEST. BED IN LOWEST POSITON AND CALL LIGHT IN REACH.
--- NOTE | 2022-05-19 18:41 | NUR ---
DAUGHTER OSIEL CALLED. RECEIVED PERMISSION TO SPEAK WITH DAUGHTER FROM PT AND GAVE UPDATE. BIPAP NOW OFF AND CLOSE FRIEND AT BEDSIDE. O2 ON FOR COMFORT.
--- NOTE | 2022-05-19 18:47 | NUR ---
Multiple visits today. Pt pale and more frail. Declines quickly when off bipap. review of pt with nursing and physician. Called daughter plan is comfort care. His caregiver and friend and her family are at bedside. He is more alert they are tearful and expressing love. will continue supportive care.
--- NOTE | 2022-05-20 05:47 | NUR ---
SHIFT SUMMARY PT A&O, HAS CALLED AND COMMUNICATED NEEDS THROUGHOUT SHIFT. CAREGIVER AND FAMILY HAVE REMAINED AT BEDSIDE. PT HAS BEEN EATING AND DRINKING WHAT HE WISHES. MANAGING SYMPTOMS SUCH AIR HUNGER AND SECRETIONS PER EMAR AND PROVIDEDING SUCTIONING, PT RESPONDS WELL TO THESE INTERVENTIONS. WILL REPORT TO DAY SHIFT RN.
--- NOTE | 2022-05-20 08:34 | NUR ---
MORNING ASSESSMENT PATIENT RESTING IN BED WITH SON AT BEDSIDE. PATIENT ANSWERING QUESTIONS APPROPRIATELY. PATIENT DENIES PAIN OR DISCOMFORT. BREATHING IS EVEN AND REGULAR AT REST, BUT DID INCREASE WITH REPOSITIONING AND ORAL CARE. BROW IS SMOOTH AND LIMBS ARE STILL. PATIENT IS QUIET WHEN NOT TALKING WITH STAFF OR SON. PATIENT AGREEABLE TO AND FOLLOWED DIRECTIONS FOR ORAL CARE AND SUCTIONING. PATIENT CONTINUES TO WEAR OXYMIZER FOR COMFORT. PATIENT STARTED SHIFT WITH SPO2% AROUND 45-48%. PATIENT CURRENTLY AT 91%.
--- NOTE | 2022-05-20 16:45 | NUR ---
Multiple visits with patient and family. They are inerating with father and playing music for him. rewquiring more narcotics to control symptoms. pt requesting that they take him off the oxygen. They plan to do it sonn they want a little more time. they requested help with funneral home and estate planning. we settled on [facility]. [employer] check list given for pt estate and home. Pt from mites[facility] Horan they requested hep with resources for helping his caregiver after he passes. resources of houseing vouches and support for the regoin given. Review with children how we medicate to comfort to allow a natural and comfortable transtion with no to minimal air hunger.
--- NOTE | 2022-05-20 18:18 | NUR ---
END OF SHIFT SUMMARY: THIS MORNING PATIENT WAS ALERT AND ANSWERING QUESTIONS TO RN AND FAMILY. PATIENT TOLERATED SUCTIONING AND ORAL CARE WELL. PATIENT DISCOMFORT (PRIMARILY AIR HUNGER AND PAIN) TREATED PER EMAR AND NON-PHARMACOLOGIC MEASURES. ONCE PATIENT'S DAUGHTER ARRIVED, THE PATIENT AND FAMILY DECIDED TO REMOVE THE PATIENT'S OXYGEN. THE PATIENT RETURNED TO SPO2 FROM 45-60%. THROUGHOUT THE DAY, THE PATIENT'S MENTATION DECLINED. BY THE END OF THE SHIFT PATIENT WOULD OPEN EYES BUT NO LONGER RESPOND VERBALLY. MOTTLING OF SKIN ON BOTH FEET NOTED EARLY IN THE AFTERNOON. FEET ARE NOW COOL TO THE TOUCH.
--- NOTE | 2022-05-20 19:10 | NUR ---
Cook of care This RN had just received report from Amira MORALEZ when pt noted to be pulseless and not breathing by kiln pusherKIRT Robledo with family at bedside. This RN and Amira RN to bedside. Amira MORALEZ auscultates for heart sounds, Meena RN feels for radial pulse, alina RN feels for pulse as well. No pulse or heart beat heard. Meena kiln pusher to notify Provider and Packager Machine. Pt is cool to touch, skin is pale and gutierrze.
--- NOTE | 2022-05-20 21:08 | NUR ---
Pt departs Pt taken out of department by [facility].
== END 2022-05-20 19:10 ==
LOC: MEDS 11:41 → PCU 18:41 → MEDS 18:41 → PCU 05-14 12:26
PROVIDERS: Hospitalist; Internal Medicine; Internal Medicine Cardiovascular Disease; ADMIT Hospitalist
PROC: 5A09457 Assistance with Respiratory Ventilation, 24-96 Consecutive Hours, Continuous Positive Airway Pressure (ICD-10-PCS; principal; 2022-05-14)
DX: I13.0 Hypertensive heart and chronic kidney disease with heart failure and stage 1 through stage 4 chronic kidney disease, or unspecified chronic kidney disease (principal); I21.A1 Myocardial infarction type 2; I50.33 Acute on chronic diastolic (congestive) heart failure; J69.0 Pneumonitis due to inhalation of food and vomit; J96.21 Acute and chronic respiratory failure with hypoxia; J96.22 Acute and chronic respiratory failure with hypercapnia; J44.1 Chronic obstructive pulmonary disease with (acute) exacerbation; N17.9 Acute kidney failure, unspecified; E51.2 Wernicke's encephalopathy; E87.29 Other acidosis; I48.20 Chronic atrial fibrillation, unspecified; Z66 Do not resuscitate; Z51.5 Encounter for palliative care; Z20.822 Contact with and (suspected) exposure to COVID-19; N18.30 Chronic kidney disease, stage 3 unspecified; F32.A Depression, unspecified; K21.9 Gastro-esophageal reflux disease without esophagitis; M10.9 Gout, unspecified; N40.0 Benign prostatic hyperplasia without lower urinary tract symptoms; Z85.850 Personal history of malignant neoplasm of thyroid; K59.00 Constipation, unspecified; Z95.2 Presence of prosthetic heart valve; Z86.73 Personal history of transient ischemic attack (TIA), and cerebral infarction without residual deficits; Z98.890 Other specified postprocedural states; F17.210 Nicotine dependence, cigarettes, uncomplicated; I27.20 Pulmonary hypertension, unspecified; G25.81 Restless legs syndrome; F03.90 Unspecified dementia, unspecified severity, without behavioral disturbance, psychotic disturbance, mood disturbance, and anxiety; R79.81 Abnormal blood-gas level
CPT/HCPCS: 0241U; 36415; 36600; 71045; 80048; 80053; 80061; 80069; 82803; 82947; 83036; 83735; 83880; 84100; 84145; 84484; 85014; 85018; 85025; 85027; 85049; 85520; 85610; 92526; 92610; 93005; 93010; 93306; 94640; 94660; 94664; 94760; 94762; A9270; C1751; J0360; J0456; J0696; J1170; J1644; J1650; J1940; J2060; J2270; J2920; J2930; J7030; J7040; J7050; J7512; U0004